=== PATIENT | male | born 1965 | race Caucasian/White ===

== ENCOUNTER 2021-05-10 09:47 | Emergency (ER) | payer BC ==
[~2021-05-10] VITALS: Ht 182.9 cm; Wt 81.8 kg
[2021-05-10 09:58] VITALS: BP 152/94; TEMP 97.9
[2021-05-10] MEDS ORDERED: XARELTO STARTER20 MG PO (12:22)
[2021-05-10 12:57] VITALS: PULSE 85
== END 2021-05-10 12:57 | disposition home or self-care (01) ==
LOC: COL.ER 09:47
DX: I82.4Z2 Acute embolism and thrombosis of unspecified deep veins of left distal lower extremity (principal); I82.432 Acute embolism and thrombosis of left popliteal vein